=== PATIENT | female | born 1970 | race Caucasian/White ===

== ENCOUNTER → 2016-09-19 | Outpatient (CLI) | payer SELFPAY ==
[~2016-09-19] MED LIST: NS 100 ML IV 100 ML IV ONE
[2016-09-19 10:31] LABS: CREATININE 0.78 mg/dL (0.55-1.02)
--- NOTE | 2016-09-19 12:44 | CT ---
HISTORY: Facial droop, disorder of facial nerve, headache Study: CT brain without contrast Comparison: No priors Technique: Multiple axial images of the brain were obtained from the skull base to the vertex prior to and duri ng administration of IV contrast. Images are also reviewed in coronal and sagittal planes. Dose redu ction techniques utilized automatic exposure control. Findings: No acute intraparenchymal hemorrhage or mass can be identified. No extra-axial fluid collections ar e seen. No alteration in the attenuation of the brain parenchyma can be identified to suggest acute or subacute ischemic change. The ventricular system is symmetric and nondilated. The extracranial structures are grossly unremarkable. Arterial phase acquisition of the brain displayed excellent opacification of vertebrobasilar and int ernal carotid arteries and their branches. No evidence of aneurysm or AVM is seen. Brainstem and cer ebellum unremarkable. There is no evidence of cerebellopontine angle mass. IMPRESSION: 1. No acute intracranial process can be identified. 2. No evidence of unusual contrast enhancing lesion. Reported By:
== END ==
LOC: RAD 09:53
PROVIDERS: ATTEND Nurse Practitioner Family
DX: R29.810 Facial weakness (principal); R51 Headache; G51.8 Other disorders of facial nerve
CPT/HCPCS: 36415; 70470; 82565; 84520; A4222